=== PATIENT | male | born 1950 | race Caucasian/White ===

== ENCOUNTER 2018-11-25 12:55 | Day surgery (SDC) | payer MEDICARE, OTHER ==
[~2018-11-25] VITALS: Ht 188 cm; Wt 89.0 kg
[2018-11-25] VITALS (9 sets, daily range): BP systolic 136–152; BP diastolic 78–91
[~2018-11-25 12:55] MED LIST: DOCU-28 PO; FLO0.4C PO
[2018-11-25] MEDS ORDERED: ceFAZolin 2gm in dextrose, iso 100 ML IV ONE (13:10)
[2018-11-25] MEDS ORDERED: famotidine 20mg tablet PO ONE (13:19)
[2018-11-25] MEDS ORDERED: ringers solution, lacted 1,000 ML IV SCH ×2 (13:19→16:24)
[2018-11-25] MEDS ORDERED: ASPI-529 PO (13:48)
[2018-11-25] MEDS ORDERED: ATOR40TA72 PO (14:05)
[2018-11-25] MEDS ORDERED: DOXY150T PO (14:05)
[2018-11-25] MEDS ORDERED: NAPROXEN (14:05)
[2018-11-25] MEDS ORDERED: CHOL500044 (14:05)
[2018-11-25] MEDS ORDERED: ACET-2615 PO (14:05)
[2018-11-25] MEDS ORDERED: DULO60CA64 PO (14:05)
[2018-11-25 14:06] LABS: BASOPHILS # (AUTO) 0.1 X10'3 (0-0.2); BASOPHILS % (AUTO) 0.8 % (0-1); EOSINOPHILS # (AUTO) 0.2 X10'3 (0-0.9); EOSINOPHILS % (AUTO) 3.1 % (0-6); LYMPHOCYTES # (AUTO) 1.9 X10'3 (1.1-4.8); LYMPHOCYTES % (AUTO) 25.9 % (21-51); MEAN CORPUSCULAR HEMOGLOBIN 30.2 PG (27.0-31.0); MEAN CORPUSCULAR HGB CONC 33.7 g/dL (33.0-36.5); MEAN CORPUSCULAR VOLUME 89.8 FL (78-98); MEAN PLATELET VOLUME 8.4 FL (7.4-10.4); MONOCYTES # (AUTO) 0.5 X10'3 (0-0.9); MONOCYTES % (AUTO) 7.2 % (2-12); NEUTROPHILS # (AUTO) 4.7 X10'3 (1.8-7.7); PRE OP HEMOGLOBIN 14.8 g/dL (14.0-17.9); PRE OP PLATELET COUNT 243 X10'3 (140-440); RED CELL DISTRIBUTION WIDTH 13.5 % (11.5-14.5)
[2018-11-25 14:23] LABS: ALBUMIN 3.8 G/DL (3.4-5.0); ALBUMIN/GLOBULIN RATIO 1.5 (1.1-1.5); ALKALINE PHOSPHATASE 67 IU/L (46-116); BLOOD UREA NITROGEN 15 MG/DL (7-18); BUN/CREATININE RATIO 15.8 (5.4-32.0); CALCIUM 8.4 MG/DL (8.5-10.1); CHLORIDE 104 MMOL/L (99-107); CREATININE 0.95 MG/DL (0.60-1.10); PRE OP ALT 40 U/L (30-65); PRE OP ANION GAP 7 (8-16); PRE OP AST 33 U/L (10-37); PRE OP BILIRUB, TOTAL 0.7 MG/DL (0.0-1.0); PRE OP GLUCOSE 75 MG/DL (70-104); PRE OP POTASSIUM 3.9 MMOL/L (3.4-5.1); PRE OP SODIUM 138 MMOL/L (135-145); TOTAL CARBON DIOXIDE 27.5 MMOL/L (24-32); TOTAL PROTEIN 6.3 G/DL (6.4-8.2); eGFR 78 ML/MIN
[2018-11-25] MEDS ORDERED: BUPIVAcaine/PF 2.5 mg/ml (0.25%) 30ml vial ONE (15:15)
[2018-11-25] MEDS ORDERED: sevoflurane 250ml liquid IH ONE (15:26)
[2018-11-25] MEDS ORDERED: fentaNYL/PF 50MCG/1 ML 2ML syringe ONE (15:27)
[2018-11-25] MEDS ORDERED: midazolam 2 mg/2 ml injection ONE (15:27)
[2018-11-25] MEDS ORDERED: propofol inj 20 ML IV ONE (15:30)
[2018-11-25] MEDS ORDERED: rocuronium 10mg/ml inj IV ONE (15:30)
[2018-11-25] MEDS ORDERED: acetaminophen 1,000mg/100ml IV 100 ML IV ONE (16:10)
[2018-11-25] MEDS ORDERED: meperidine/PF 25mg/ml syringe IV PRN ×3 (16:25)
[2018-11-25] MEDS ORDERED: proCHLORperazine 10 MG/2 ml inj IV PRN (16:25)
[2018-11-25] MEDS ORDERED: ondansetron/PF 4mg/2ml inj IV PRN (16:25)
[2018-11-25] MEDS ORDERED: morphine 4 MG/ML inj SYRINge IV PRN ×2 (16:25)
[2018-11-25] MEDS ORDERED: glycopyrrolate 0.2mg/ml inj ONE (16:26)
[2018-11-25] MEDS ORDERED: neostigmine methylsulfate 1 MG/ML 10ml vial ONE (16:26)
--- NOTE | 2018-11-25 16:41 | NUR ---
Received from OR via , accompanied by Anesthesiologist DR CORREA and report given by Anesthesiolgist. AWAKENS TO VOICE. VITALS STABLE. NO BLEEDING AT SURGICAL SITE. BERYL PAIN.
--- NOTE | 2018-11-25 17:51 | NUR ---
AWAKE AND ORIENTED. VITALS STABLE. DRESSING DI. BERYL PAIN. HOME WITH HIS AT THIS TIME.
== END 2018-11-25 17:51 | disposition home or self-care (01) ==
LOC: PAS 12:55
PROVIDERS: ATTEND Surgery
DX: D17.0 Benign lipomatous neoplasm of skin and subcutaneous tissue of head, face and neck (principal); G62.9 Polyneuropathy, unspecified; Z79.899 Other long term (current) drug therapy; Z88.2 Allergy status to sulfonamides; Z86.718 Personal history of other venous thrombosis and embolism; Z79.82 Long term (current) use of aspirin
CPT/HCPCS: 21554; 36415; 80053; 82948; 85025; 93005; J0131; J0690; J2250; J2704; J2710; J3010; J3490; A7000; J7120

== ENCOUNTER 2018-11-29 11:11 | Outpatient (CLI) | payer MEDICARE, OTHER ==
[~2018-11-29 11:11] MED LIST changes: +ACET-2615 PO; +ASPI-529 PO; +ATOR40TA72 PO; +CHOL500044; -DOCU-28 PO; +DOXY150T PO; +DULO60CA64 PO; -FLO0.4C PO; +NAPROXEN
== END 2018-11-29 23:59 | disposition home or self-care (01) ==
LOC: RAD 11:11
PROVIDERS: ATTEND Orthopaedic Surgery
DX: M51.27 Other intervertebral disc displacement, lumbosacral region (principal); M48.061 Spinal stenosis, lumbar region without neurogenic claudication; M43.17 Spondylolisthesis, lumbosacral region; M12.88 Other specific arthropathies, not elsewhere classified, other specified site; M85.68 Other cyst of bone, other site
CPT/HCPCS: 72148

== ENCOUNTER 2024-02-21 12:37 | Outpatient (CLI) | payer MEDICARE, OTHER ==
[~2024-02-21 12:37] MED LIST changes: -DOXY150T PO; +DOXY150T8 PO; -DULO60CA64 PO; +DULO60CA65 PO
== END 2024-02-21 23:59 | disposition home or self-care (01) ==
LOC: VAS 12:37
PROVIDERS: ATTEND Family Medicine
DX: I82.532 Chronic embolism and thrombosis of left popliteal vein (principal); I82.402 Acute embolism and thrombosis of unspecified deep veins of left lower extremity; Z79.01 Long term (current) use of anticoagulants
CPT/HCPCS: 93970